=== PATIENT | male | born 2000 | race African-American/Black ===

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

== ENCOUNTER 2025-03-06 22:55 | Emergency (ER) | payer OTHER, SELFPAY ==
--- NOTE | ~2025-03-06 | XR_ITS ---
Examination: XR chest 1V portable Clinical History: JAMAL Comparison: 08/24/2019 Technique: Portable AP Findings: Heart size normal. Lungs clear. No acute bony abnormality. IMPRESSION: 1. No acute cardiopulmonary findings given portable technique. Reviewed, dictated and finalized at location R. REVIEWER
--- OUTSIDE RECORDS SUMMARY | 2025-03-06 22:57 | XMS_ITS | Clinical Summary ---
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
[2025-03-06 23:42] VITALS: BP 124/77; PULSE 70; RESP 18; TEMP 36.8; O2SAT 100
[2025-03-07 02:35] VITALS: BP 128/79; PULSE 78; RESP 18; O2SAT 100
[2025-03-07 03:17] LABS: Influenza A QL RT-PCR Negative (Negative); Influenza B QL RT-PCR Negative (Negative); RSV RNA, RT-PCR Negative (Negative); SARS-CoV-2 RNA PCR Negative (Negative)
--- NOTE | 2025-03-07 04:03 | ED_ITS ---
HPI - SOB/Dyspnea General Chief Complaint: Shortness of Breath/Dyspnea Stated Complaint: Shortness of breath Time Seen by Provider: 03/07/25 02:17 History of Present Illness HPI Narrative: 24-year-old male with no pertinent past medical history presenting to the emergency department with shortness of breath. He states he vapes and thinks he may have injured his lungs. Secondary complaint is that he bad and 1 episode of vomiting blood earlier today. No nausea vomiting or any pain right now. No chest discomfort or shortness of breath. No fever chills. States he had a sore throat as well. Denies any chest injuries or any trauma. Still smokes and has a history of alcohol use but denies any other substances. No sick contacts. No present nauseousness or complaints. Ambulatory with a steady gait not any distress. Related Data Allergies Allergy/AdvReac Type Severity Reaction Status Date / Time No Known Allergies Allergy Verified 03/06/25 22:56 Review of Systems 2 Review of Systems: As reviewed above in HPI All systems reviewed & are unremarkable except as noted in HPI and below PMFSH Past Medical History Medical History No active medical problems Social History Social History Substance use: never Gender identity (if verbalized by the patient): Male Exam 2 Narrative: GENERAL: [Well-appearing, well-nourished, and in no acute distress.] HEAD: [Normocephalic, atraumatic.] EYES: [PERRLA and EOMI.] ENT: Nares clear, no rhinorrhea or epistaxis. Mucous membranes moist. NECK: Supple. CHEST: [Clear to auscultation. No respiratory distress.] HEART: [Regular rate and rhythm]. No murmur heard. [Normal peripheral pulses.] ABDOMEN: [Soft, nondistended], [nontender], [No rigidity or guarding] EXTREMITIES: Normal range of motion. [No edema.] SKIN: Warm, dry, no rash. NEURO: [No focal deficits]. Alert and oriented [x3.] PSYCH: [Normal mood and affect.] Course Vital Signs Vital signs: Vital Signs Temperature 36.8 C 03/06/25 23:42 Pulse Rate 70 03/06/25 23:42 Respiratory Rate 18 03/06/25 23:42 Blood Pressure 124/77 03/06/25 23:42 Pulse Oximetry 100 03/06/25 23:42 Temperature 36.8 C 03/06/25 23:42 Pulse Rate 82 03/07/25 05:42 Respiratory Rate 19 03/07/25 05:42 Blood Pressure 119/66 03/07/25 05:42 Pulse Oximetry 100 03/07/25 05:42 Oxygen Delivery Room Air 03/07/25 02:35 [facility] Narrative Medical decision making narrative: 24-year-old male with no pertinent past medical history presenting to the emergency department with shortness of breath. He states he vapes and thinks he may have injured his lungs. Secondary complaint is that he bad and 1 episode of vomiting blood earlier today. No nausea vomiting or any pain right now. No chest discomfort or shortness of breath. No fever chills. States he had a sore throat as well. Denies any chest injuries or any trauma. Still smokes and has a history of alcohol use but denies any other substances. No sick contacts. No present nauseousness or complaints. Ambulatory with a steady gait not any distress. patient is not any distress with normal vital signs and an unremarkable examination. He is ambulatory pacing around without any difficulty. He has no signs of distress. Nondistended abdomen. Symmetric chest rise without any difficulty breathing. One episode of vomiting earlier today without any nauseousness presently. Possibility of bronchitis, pneumonia, asthma, COVID, flu, RSV. He will obtain basic labs chest x-ray and viral panel swabs. Patient presently asymptomatic. Likely safe for discharge with PCP follow-up upon completion of workup. patient's labs are unremarkable. Chest x-ray unremarkable. Safe for discharge home at this time. Viral panel swabs negative. Differential Diagnosis Differential Diagnosis: Possibility of bronchitis, pneumonia, asthma, COVID, flu, RSV Lab Data [facility] Lab Attestation statement: I personally reviewed the patient's lab results. 03/07/25 04:57 03/07/25 04:57 Labs: Lab Results 03/07/25 03/07/25 Range/Units 02:36 04:57 WBC 6.2 (4.5-10.0) K/mm3 RBC 4.85 (4.6-6.20) M/mm3 Hgb 14.2 (14.0-18.0) g/dL Hct 43.9 (42.0-52.0) % MCV 90.5 (80-100) fl MCH 29.3 (26-34) pg MCHC 32.3 (32-36) g/dl RDW 12.1 (11.5-14.5) % Plt Count 218 (150-375) k/mm3 MPV 11.0 H (7.4-10.4) fl Immature Gran % (Auto) 0.3 (0-0.5) % Neut % (Auto) 60.3 (45.5-73.1) % Lymph % (Auto) 26.0 (18.3-44.2) % Simpson % (Auto) 11.8 H (2.6-8.5) % Eos % (Auto) 1.1 (0-4.4) % Baso % (Auto) 0.5 (0.2-1.2) % Lymph # (Auto) 1.61 (0.9-3.2) K/mm3 Simpson # (Auto) 0.7 H (0.1-0.6) K/mm3 Eos # (Auto) 0.1 (0-0.3) K/mm3 Baso # (Auto) 0.0 (0.0-0.1) K/mm3 Abs Immat Gran (auto) 0.02 (0.00-0.031) K/mm3 Absolute Neuts (auto) 3.7 (1.3-6.7) K/mm3 Absolute Nucleated RBC 0.000 (0.0-0.012) K/mm3 Nucleated RBC % 0.0 (0.0-0.2) % Sodium 137 (137-145) mmol/L Potassium 4.1 (3.4-5.0) mmol/L Chloride 105 (98-107) mmol/L Carbon Dioxide 28 (22-30) mmol/L Anion Gap 4 (4-12) mmol/L BUN 11 (9-20) mg/dL Creatinine 0.98 (0.7-1.3) mg/dL Estim Creat Clear Calc Not Reportable Estimated GFR > 60 (59 - ) Glucose 89 (65-110) mg/dL Calcium 9.3 (8.4-10.2) mg/dL Total Bilirubin 0.8 (0.2-1.3) mg/dL AST 21 (17-59) U/L ALT 14 (6-50) U/L Alkaline Phosphatase 78 (38-126) U/L Total Protein 7.5 (6.3-8.2) g/dL Albumin 4.4 (3.5-5.1) g/dL Influenza A (RT-PCR) Negative (Negative) Influenza B (RT-PCR) Negative (Negative) RSV (RT-PCR) Negative (Negative) SARS-CoV-2 RNA (RT-PCR) Negative (Negative) Imaging Data Attestation: I personally reviewed and interpreted this imaging study as follows: My impression: With no pneumonia, pneumothorax or consolidation Discharge Plan Discharge Clinical Impression: Viral syndrome, Vomiting Patient Disposition: Home Condition: Stable Instructions: Antibiotic Form Additional Instructions: your laboratory studies are all normal in reassuring. No signs of liver kidney disease. No signs of infection or abnormalities with your electrolytes. Chest x-ray shows no obvious pneumonia or consolidation or evidence of bronchitis. Symptoms consistent with viral syndrome and an episode of vomiting could be from gastritis. Follow-up with regular primary care provider. Take anti- inflammatory medications such as Tylenol for pain control. We have send you home with Zofran for nausea control. Return with any emergent concerns. Patient Language: Swazi Prescriptions: New ondansetron 4 mg tablet,disintegrating 4 mg PO Q8H PRN (Reason: nausea and vomiting) Qty: 10 0RF Follow-up/Referrals: PHYSICIAN,LACE INSPECTOR [Primary Care Provider, Internal Medicine] Stand Alone Forms: Work/School Release IP Time of Disposition: 05:25
[2025-03-07 05:02] LABS: Hematocrit 43.9 % (42.0-52.0); Hemoglobin 14.2 g/dL (14.0-18.0); Immature Granulocyte Percent A 0.3 % (0-0.5); Lymphocytes Absolute Auto 1.61 K/mm3 (0.9-3.2); Mean Corpuscular HGB Conc 32.3 g/dl (32-36); Mean Corpuscular Hemoglobin 29.3 pg (26-34); Mean Corpuscular Volume 90.5 fl (80-100); Nucleated Red Blood Cells Absolute Auto 0.000 K/mm3 (0.0-0.012); Nucleated Red Blood Cells Perc 0.0 % (0.0-0.2); Platelet Count Result 218 k/mm3 (150-375); Red Blood Count 4.85 M/mm3 (4.6-6.20); White Blood Count 6.2 K/mm3 (4.5-10.0)
[2025-03-07 05:17] LABS: Alanine Aminotransferase 14 U/L (6-50); Albumin Level 4.4 g/dL (3.5-5.1); Alkaline Phosphatase 78 U/L (38-126); Anion Gap 4 mmol/L (4-12); Aspartate Amino Transferase 21 U/L (17-59); Bilirubin,Total 0.8 mg/dL (0.2-1.3); Blood Urea Nitrogen 11 mg/dL (9-20); Calcium 9.3 mg/dL (8.4-10.2); Carbon Dioxide 28 mmol/L (22-30); Chloride 105 mmol/L (98-107); Estimated Glomerular Filt Rate > 60; Glucose 89 mg/dL (65-110); Potassium 4.1 mmol/L (3.4-5.0); Sodium 137 mmol/L (137-145); Total Protein 7.5 g/dL (6.3-8.2)
[2025-03-07 05:42] VITALS: BP 119/66; PULSE 82; RESP 19; O2SAT 100
== END 2025-03-07 05:44 | disposition home or self-care (01) ==
PROVIDERS: Emergency Provider Student in an Organized Health Care Education/Training Program
DX: B34.9 Viral infection, unspecified (principal); R11.10 Vomiting, unspecified; Z20.822 Contact with and (suspected) exposure to COVID-19
CPT/HCPCS: 36415; 71045; 80053; 85025; 87637; 99283